=== PATIENT | male | born 1980 | race Caucasian/White ===

== ENCOUNTER 2017-05-04 07:56 | Emergency (ER) | payer OTHER ==
[~2017-05-04] VITALS: Ht 175.3 cm; Wt 123.0 kg
[~2017-05-04 07:56] MED LIST: CATAPRES0.1 MG PO; DILANTIN100 MG PO; IBUPROFEN600 MG PO; PERCOCET 5/31 TABLET PO; TRAZODONE HCL50 MG PO
[2017-05-04 09:30] LABS: CHLORIDE 109 mEq/L (99-109); POTASSIUM 4.1 mEq/L (3.7-5.4); SODIUM 138 mEq/L (136-147)
[2017-05-04 09:31] LABS: GLUCOSE 120 mg/dL (70-99)
[2017-05-04 09:33] LABS: ANION GAP 9 MEQ/L (2-14)
[2017-05-04 09:35] LABS: GFR ESTIMATE (CALCULATED) > 59 mL/min/; SERUM ETHYL ALCOHOL < 10 mg/dL
[2017-05-04 09:36] LABS: UREA NITROGEN (BUN) 14 mg/dL (9-23)
[2017-05-04 09:40] LABS: HEMATOCRIT 43.8 % (38.0-50.0); MCH 29.7 PG (29.0-34.0); MCHC 34.9 G/DL (30.0-36.0); MCV 84.9 FL (86-99); MEAN PLAT.VOLUME 8.8 uM^3 (9.0-12.4); PLATELET COUNT 194 K/uL (156-360); RBC DIS.WIDTH-CV 12.2 % (11.8-14.6); RBC DIS.WIDTH-SD 37.7 % (39-53); RED BLOOD COUNT 5.16 M/uL (4.00-5.50); WHITE BLOOD COUNT 8.5 K/uL (4.1-10.2)
[2017-05-04] MEDS ORDERED: FLEXERIL10 MG PO (10:57)
[2017-05-04] MEDS ORDERED: NAPROSYN500 MG PO (10:57)
[2017-05-04 11:43] VITALS: BP 160/97
== END 2017-05-04 11:45 | disposition home or self-care (01) ==
LOC: EME 07:56
PROVIDERS: Nurse Practitioner Family
DX: R07.81 Pleurodynia (principal); M79.605 Pain in left leg; S00.81XA Abrasion of other part of head, initial encounter; M79.642 Pain in left hand; V49.9XXA Car occupant (driver) (passenger) injured in unspecified traffic accident, initial encounter; G40.909 Epilepsy, unspecified, not intractable, without status epilepticus
CPT/HCPCS: 70450; 71260; 72125; 72129; 72132; 73130; 73560; 74177; 80048; 81003; 85027; 99281; 99285; G0480; J3010; J7030